=== PATIENT | male | born 1985 | race Asian ===

== ENCOUNTER 2018-08-31 21:04 | Emergency (ER) | payer MEDICAID ==
[~2018-08-31] VITALS: Ht 185.4 cm; Wt 98.0 kg
[2018-08-31 21:06] VITALS: Ht 185.4 cm; Wt 98.0 kg
[2018-08-31 23:03] VITALS: BP 118/87
== END 2018-08-31 23:03 | disposition home or self-care (01) ==
LOC: ED 21:04
DX: S61.411A Laceration without foreign body of right hand, initial encounter (principal); W26.8XXA Contact with other sharp object(s), not elsewhere classified, initial encounter; Y93.89 Activity, other specified; Y92.89 Other specified places as the place of occurrence of the external cause; Y99.8 Other external cause status
CPT/HCPCS: J2001

== ENCOUNTER 2018-09-03 15:56 | Emergency (ER) | payer MEDICAID ==
[~2018-09-03] VITALS: Ht 185.4 cm; Wt 98.5 kg
[2018-09-03 16:40] VITALS: BP 112/79; Ht 185.4 cm; Wt 98.5 kg
== END 2018-09-03 18:08 | disposition home or self-care (01) ==
LOC: ED 15:56
DX: S61.411D Laceration without foreign body of right hand, subsequent encounter (principal); X58.XXXD Exposure to other specified factors, subsequent encounter

== ENCOUNTER 2018-09-08 09:33 | Emergency (ER) | payer MEDICAID ==
[~2018-09-08] VITALS: Ht 185.4 cm; Wt 98.4 kg
[2018-09-08 09:49] VITALS: BP 117/81; Ht 185.4 cm; Wt 98.4 kg
== END 2018-09-08 10:22 | disposition home or self-care (01) ==
LOC: ED 09:33
DX: S61.411D Laceration without foreign body of right hand, subsequent encounter (principal); F17.210 Nicotine dependence, cigarettes, uncomplicated; X58.XXXD Exposure to other specified factors, subsequent encounter
CPT/HCPCS: 99406

== ENCOUNTER 2018-10-18 11:53 | Emergency (ER) | payer MEDICAID ==
[~2018-10-18] VITALS: Ht 185.4 cm; Wt 96.6 kg
[2018-10-18 12:03] VITALS: BP 124/85; Ht 185.4 cm; Wt 96.6 kg
== END 2018-10-18 15:13 | disposition left against medical advice (07) ==
LOC: ED 11:53
DX: Z53.21 Procedure and treatment not carried out due to patient leaving prior to being seen by health care provider (principal)